=== PATIENT | female | born 1980 | race Caucasian/White ===

== ENCOUNTER → 2020-12-13 | Outpatient (CLI) | payer BC | LOC: RAD 10:32 | PROVIDERS: ATTEND Internal Medicine | DX: I10 Essential (primary) hypertension (principal) | CPT/HCPCS: 71046 ==

== ENCOUNTER → 2022-01-27 | Outpatient (CLI) | payer BC | LOC: RAD 12:29 | PROVIDERS: ATTEND Internal Medicine | DX: G47.33 Obstructive sleep apnea (adult) (pediatric) (principal); Z99.89 Dependence on other enabling machines and devices | CPT/HCPCS: 71046 ==